=== PATIENT | male | born 1985 | race American Indian/Alaskan Native ===

== ENCOUNTER 2018-08-26 15:56 | Emergency (ER) | payer OTHER ==
[2018-08-26 16:10] VITALS: BP 143/91
--- NOTE | 2018-08-26 16:10 | Emergency Department Report ---
Blank Doc - Documentation Documentation: 33 y o male presents to ED cc of neck pain and stiffness that began on thursday pt staes that he is unable to turn his head without pain denies f/c/n/v
--- NOTE | 2018-08-26 17:33 | Cat Scan Report ---
PROCEDURE: CT CERVICAL SPINE WO CON TECHNIQUE: Computerized tomography of the cervical spine was performed from the skull base to T1 wit hout contrast material. CT DOSE LENGTH PRODUCT: 610.7 mGycm HISTORY: neck pain/stiff COMPARISONS: None . FINDINGS: There is disc space narrowing C6-C7 with anterior and posterior osteophytes. Vertebral bodies are normal in height and alignment. The facet joints demonstrate normal alignment. S pinous processes are intact. Prevertebral soft tissues are unremarkable. IMPRESSION: Degenerative disc disease at C6-C7 This document is electronically signed by Terrell Mackey MD., August 26 2018 05:31:29 PM ET
--- NOTE | 2018-08-26 19:36 | Emergency Department Report ---
Blank Doc - Documentation Documentation: When entering the patients room, patient was not in the room. RN told that sandi remy left before me seeing patient. I have called number on file and mother stated will call patient to return to the hospital. <MALLORY WHITLEY - Last Filed: 08/26/18 19:35> - Documentation Documentation: A physician and/or other qualified medical personnel has recommended that the patient receive further examination and/or treatment beyond their Medical Screening Exam. The risks and benefits were explained. The patient was informed of their right to emergency care. Patient left before final disposition of their medical condition. This note has been generated by me, Dr. Erendira Flynn III, MD, the [employer] for the emergency department. I have not seen this patient personally. <ERENDIRA FLYNN - Last Filed: 08/28/18 16:30>
== END 2018-08-26 19:35 | disposition left against medical advice (07) ==
LOC: ED 15:56
DX: M54.2 Cervicalgia (principal); Z53.21 Procedure and treatment not carried out due to patient leaving prior to being seen by health care provider
CPT/HCPCS: 72125

== ENCOUNTER 2018-08-26 21:09 | Emergency (ER) | payer OTHER ==
[2018-08-26 21:16] VITALS: BP 153/77
--- NOTE | 2018-08-26 21:48 | Emergency Department Report ---
Blank Doc - Documentation Documentation: Mr caballero returns to ED to be evaluated, left to go get his children [address] completed Registration completed [facility]
[2018-08-26] MEDS ORDERED: DELTASONE PO ONE (22:17)
[2018-08-26] MEDS ORDERED: TORADOL IM ONE (22:17)
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
== END 2018-08-26 23:05 | disposition home or self-care (01) ==
LOC: ED 21:09
DX: S16.1XXA Strain of muscle, fascia and tendon at neck level, initial encounter (principal); Z79.1 Long term (current) use of non-steroidal anti-inflammatories (NSAID); F17.200 Nicotine dependence, unspecified, uncomplicated; F12.10 Cannabis abuse, uncomplicated; W22.8XXA Striking against or struck by other objects, initial encounter; Y93.89 Activity, other specified; Y92.098 Other place in other non-institutional residence as the place of occurrence of the external cause; Y99.8 Other external cause status
CPT/HCPCS: 96372; 99282; J1885; J7512